=== PATIENT | female | born 2000 | race Caucasian/White ===

== ENCOUNTER 2022-07-14 17:58 | Emergency (ER) | payer OTHER ==
[~2022-07-14] VITALS: Ht 152.4 cm; Wt 45.4 kg
[~2022-07-14 17:58] MED LIST: TYLENOL W/CODE480 ML PO
[2022-07-14] MEDS ORDERED: SEPTDS PO (18:57)
== END 2022-07-14 19:34 | disposition home or self-care (01) ==
LOC: ED 17:58
DX: L02.411 Cutaneous abscess of right axilla (principal); Z87.891 Personal history of nicotine dependence